=== PATIENT | male | born 1955 | race Two or more races ===

== ENCOUNTER → 2024-08-19 | Outpatient (CLI) | payer MEDICARE, MEDICAID, SELFPAY ==
--- NOTE | 2024-08-19 15:30 | XR_ITS ---
Examination: CT chest, without intravenous contrast. Sagittal and coronal 2-D reconstructions. Exam date and time: August 19, 2024 1546 hours INDICATIONS: Smoking history 35 years CTDI:vol (mGy) 12.7 DLP: (mGycm) 488 Technique: Multiple 3.0 mm axial sections of the chest to been obtained. Bone and lung density settings are obtained. Sagittal and coronal 2-D reconstructions have been obtained. Low dose protocols were performed. One or more of the following dose reduction techniques were used; automated exposure control, adjustment of the mA and/or KV according to patient size, use of iterative reconstruction technique. Findings: No thoracic aortic aneurysm dilatation Pulmonary artery segments are not enlarged Mild calcification left anterior descending coronary artery. No paratracheal tracheobronchial or bronchopulmonary adenopathy. 3 mm pulmonary nodule anterior segment right upper lobe image 148 No pneumonia or pulmonary edema No pleural disease No visualized liver or splenic lesion No gallstones No pancreatic mass Kidneys partially visualized no hydronephrosis IMPRESSION: 3 mm pulmonary nodule anterior segment right upper lobe, with this study is baseline recommend continued 6 month follow-up CT chest without contrast
== END | disposition home or self-care (01) ==
PROVIDERS: PCP Physician Assistant; Referring Provider Physician Assistant; Visit Provider Physician Assistant
DX: R91.1 Solitary pulmonary nodule (principal); F17.200 Nicotine dependence, unspecified, uncomplicated
CPT/HCPCS: 71250